=== PATIENT | male | born 1990 | race Caucasian/White ===

== ENCOUNTER 2019-12-13 23:31 | Emergency (ER) | payer SELFPAY ==
--- NOTE | 2019-12-14 00:01 | ER Document Report ---
ED Medical Screen (RME) - General Chief Complaint: Nausea/Vomiting Stated Complaint: SOB,VOMITING,CHILLS Time Seen by Provider: 12/13/19 23:54 Mode of Arrival: Ambulatory Information source: Patient Notes: 29-year-old male presented to ED for complaint of nausea and vomiting x3 days. He states today the first time he had emesis that had blood in it a second time and had blood in the next time it was just very dark. He states he has had chills hot flashes sweating shortness of breath and pressure in his chest. He states he does not smoke but he does drink weekly. He states it varies whether is just a couple beers or a lot. He is very diaphoretic while I am examining him. He states his pain level is about a 1 or 2 at this time. We will do EKG blood work type and screen chest x-ray saline lock and have been examined by another provider. He will be put on the monitor. - Related Data Home Medications: synthroid. testestorone Past Medical History - Social History Chew tobacco use (# tins/day): No Frequency of alcohol use: Occasional Drug Abuse: None Physical Exam - Vital signs Vitals: Temp Pulse Resp BP Pulse Ox 98.4 F 111 H 28 H 155/92 H 98 12/13/19 23:45 12/13/19 23:45 12/13/19 23:45 12/13/19 23:45 12/13/19 23:45 Course - Vital Signs Vital signs: Temp Pulse Resp BP Pulse Ox 98.4 F 111 H 28 H 155/92 H 98 12/13/19 23:56 12/13/19 23:45 12/13/19 23:45 12/13/19 23:45 12/13/19 23:45
[2019-12-14] MEDS ORDERED: ONDANSETRON HCL INJ/PF 4 MG/2 ML SDV IV ONE (00:24)
[2019-12-14] MEDS ORDERED: NORMAL SALINE 1000 ML 1,000 ML IV ONE ×2 (00:25→04:29)
--- NOTE | 2019-12-14 00:46 | RADIOLOGY REPORT (SQ) ---
CLINICAL HISTORY: chest tightness COMPARISON: None. TECHNIQUE: XR CHEST 1 VIEW 12/13/2019 11:57 PM [facility] FINDINGS: Cardiac silhouette is normal in size. Lungs are clear without consolidation, atelectasis, mass or edema. There is no pleural effusion. There is no pneumothorax. There are no acute osseous findings. IMPRESSION: Clear lungs.
[2019-12-14 01:10] LABS: HEMOGLOBIN 19.2 g/dL (13.5-17.0); MEAN CORPUSCULAR HEMOGLOBIN 29.4 pg (27.0-33.4); MEAN CORPUSCULAR HGB CONC 34.1 g/dL (32.0-36.0); MEAN CORPUSCULAR VOLUME 86 fl (80-97); PLATELET COUNT 294 10^3/uL (150-450); RED BLOOD COUNT 6.53 10^6/uL (4.35-5.55); RED CELL DISTRIBUTION WIDTH 15.5 % (11.5-14.0); WHITE BLOOD COUNT 20.9 10^3/uL (4.0-10.5)
[2019-12-14 01:34] LABS: ALBUMIN 4.9 g/dL (3.5-5.0); ALKALINE PHOSPHATASE 86 U/L (38-126); ANION GAP 18 (5-19); ASPARTATE AMINO TRANSFERASE 36 U/L (17-59); BILIRUBIN,DIRECT 0.3 mg/dL (0.0-0.4); BILIRUBIN,TOTAL 0.6 mg/dL (0.2-1.3); BLOOD UREA NITROGEN 16 mg/dL (7-20); CARBON DIOXIDE 23 mmol/L (22-30); CHLORIDE 102 mmol/L (98-107); GLUCOSE 106 mg/dL (75-110); POTASSIUM 4.8 mmol/L (3.6-5.0); TOTAL PROTEIN 8.5 g/dL (6.3-8.2)
[2019-12-14 01:43] LABS: HEMATOCRIT 56.4 % (37.9-51.0)
[2019-12-14 01:47] LABS: ABSOLUTE LYMPHOCYTES# (MANUAL) 1.7 10^3/uL (0.5-4.7); ABSOLUTE MONOCYTES # (MANUAL) 0.8 10^3/uL (0.1-1.4); BASOPHILS % (MANUAL) 0 % (0-2); EOSINOPHILS % (MANUAL) 0 % (0-6); LYMPHOCYTES % (MANUAL) 8 % (13-45); MONOCYTES % (MANUAL) 4 % (3-13); SEGMENTED NEUTROPHILS % (MAN) 88 % (42-78); TOTAL CELLS COUNTED 100
[2019-12-14 01:49] LABS: PLATELET COMMENT ADEQUATE; RBC MORPHOLOGY COMMENT NORMO-CYTIC/CHROMIC
[2019-12-14 01:52] LABS: FREE T3 4.73 pg/mL (2.77-5.27); FREE T4 (FREE THYROXINE) 1.63 ng/dL (0.78-2.19)
[2019-12-14 02:05] LABS: THYROID STIMULATING HORMONE 0.84 uIU/mL (0.47-4.68)
--- NOTE | 2019-12-14 03:34 | ER Document Report ---
ED General - General Chief Complaint: Nausea/Vomiting Stated Complaint: SOB,VOMITING,CHILLS Time Seen by Provider: 12/13/19 23:54 Primary Care Provider: JOSEPH MCKINNEY DO [NO LOCAL MD] - Follow up in 3-5 days Mode of Arrival: Ambulatory - [facility] Notes: Patient is a 29-year-old male with no significant past medical history who presents with nausea and vomiting. Patient states he was at the gym today when the symptoms started. He states that he vomited several times and had blood in the first 2 episodes. The third time he vomited, he states it was very dark. He has some slight abdominal discomfort. He has not had diarrhea. No fevers or chills. He denies any sick contacts. Mentions mild chest discomfort. He states that he has had a dry cough and attributed it to allergies which is normal for him. He denies taking any supplements or medications. - Related Data Allergies/Adverse Reactions: No Known Allergies Allergy (Verified 12/14/19 02:19) Home Medications: synthroid. testestorone Past Medical History - General Information source: Patient - Social History Smoking Status: Never Smoker Chew tobacco use (# tins/day): No Frequency of alcohol use: Occasional Drug Abuse: None Family History: None Patient has homicidal ideation: No Review of Systems - Review of Systems Notes: CONSTITUTIONAL: No fever, fatigue or weight loss. SKIN: No rash. HENT: No congestion, ear pain, or sore throat. EYES: No recent vision problems or eye pain. ENDOCRINE: No thyroid problems. No polyuria or polydipsia. CARDIOVASCULAR: Positive for mild chest tightness. RESPIRATORY: Positive for dry cough. GASTROINTESTINAL: Positive for abdominal pain, nausea, vomiting GENITOURINARY: No dysuria. MUSCULOSKELETAL: No joint pain or swelling. NEUROLOGIC: No seizures. No headache, focal weakness or sensory changes. HEMATOLOGIC: No unusual bruising or bleeding. PSYCHIATRIC: No depression or anxiety. Physical Exam - Vital signs Vitals: Temp Pulse Resp BP Pulse Ox 98.4 F 111 H 28 H 155/92 H 98 12/13/19 23:45 12/13/19 23:45 12/13/19 23:45 12/13/19 23:45 12/13/19 23:45 - General General appearance: Appears well Notes: VITAL SIGNS: Mild tachycardia GENERAL: No acute distress, non-toxic appearance. HEAD: Normal with no signs of head trauma. EYES: EOMI, conjunctiva normal, no discharge. EARS: Hearing grossly intact. NOSE: Normal. THROAT: Oropharynx is normal. NECK: Normal range of motion, no tenderness, supple, no lymphadenopathy, No adenopathy, no JVD. CHEST: Clear breath sounds bilaterally. No wheezes, rales, or rhonchi. CARDIAC: Regular rate and rhythm. S1 and S2, without murmurs, gallops, or rubs. VASCULAR: No Edema. ABDOMEN: Normal and soft GENITOURINARY: Normal, No tenderness LYMPATHTIC: No lymphadenopathy noted. MUSCULOSKELETAL: Good range of motion of all major joints. Extremities without clubbing, cyanosis or edema. NEUROLOGICAL: Alert and oriented x 3. No focal sensory or strength deficits. Speech normal. Follows commands appropriately. PSYCHIATRIC: Normal Affect, judgement and mood. SKIN: Normal appearance with no rashes or lesions. Course - Re-evaluation Re-evalutation: 12/14/19 06:31 Patient states he feels much better. He still has some slight tachycardia. D- dimer was negative so I have low suspicion for PE. He will be given fluids as his urinalysis looks like he is dehydrated. Patient states he is no longer having any chest pain. He has been sleeping while in the ER. His CT of his abdomen and his chest x-ray were normal. He does have a slight white count but I do not have a source. Patient was tested for Covid and this is pending. His influenza was negative. He states he feels well to go home. Patient was given strict return precautions. He was told to self isolate until he is called with a negative result. 12/15/19 01:55 - Vital Signs Vital signs: Temp Pulse Resp BP Pulse Ox 98.0 F 111 H 22 H 171/73 H 97 12/14/19 07:04 12/13/19 23:45 12/14/19 05:01 12/14/19 07:04 12/14/19 06:50 - Laboratory Result Diagrams: 12/14/19 00:27 12/14/19 00:27 Laboratory results interpreted by me: 12/14/19 12/14/19 12/14/19 00:27 00:27 05:05 WBC 20.9 H RBC 6.53 H Hgb 19.2 H Hct 56.4 H RDW 15.5 H Seg Neuts % (Manual) 88 H Lymphocytes % (Manual) 8 L Abs Neuts (Manual) 18.4 H Creatinine 1.49 H Est GFR (MDRD) Non-Af 57 L Magnesium 2.8 H Total Protein 8.5 H Urine Protein 100 H Urine Ketones 80 H Urine Ascorbic Acid 40 H - Diagnostic Test Radiology reviewed: Image reviewed, Reports reviewed - EKG Interpretation by Me EKG shows normal: Sinus rhythm Rate: Normal Rhythm: NSR Additional EKG results interpreted by me: 12/14/19 03:21 Sinus rhythm at a rate of 92. QTc 421. No acute ST changes. No previous EKG a vailable for comparison. Discharge - Discharge Clinical Impression: Vomiting Qualifiers: Vomiting type: unspecified Vomiting Intractability: non-intractable Nausea presence: with nausea Qualified Code(s): R11.2 - Nausea with vomiting, unspecified Leukocytosis Qualifiers: Leukocytosis type: unspecified Qualified Code(s): D72.829 - Elevated white blood cell count, unspecified Condition: Stable Disposition: HOME, SELF-CARE Instructions: COVID-19 Guidance for Persons Under Investigation, Vomiting ([facility]) Additional Instructions: Make sure you are staying hydrated. You can take the nausea medicine as prescribed. You must self isolate until you are called with a negative Covid result. Return to the ER for any shortness of breath, vomiting, any worsening symptoms. Prescriptions: Ondansetron [Zofran Odt 4 mg Tablet] 4 mg PO Q6H 7 Days #10 tab.rapdis Referrals: JOSEPH MCKINNEY DO [NO LOCAL MD] - Follow up in 3-5 days
[2019-12-14 04:07] LABS: A TYPE INFLUENZA AG NEGATIVE (NEGATIVE); B INFLUENZA AG NEGATIVE (NEGATIVE)
--- NOTE | 2019-12-14 06:00 | RADIOLOGY REPORT (SQ) ---
EXAM DESCRIPTION: CT ABDOMEN PELVIS WITH IV CONTRAST COMPLETED DATE/TME: 12/14/2019 04:30 CLINICAL HISTORY: Diffuse abdominal pain. COMPARISON: None Available. TECHNIQUE: CT of the abdomen and pelvis performed following IV administration of 100 mL Omnipaque 350. FINDINGS: Lung Bases: The visualized lung bases are clear. Bones: Bilateral L5 pars defects with grade 1 spondylolisthesis of L5 over S1. Mild disc height narrowing at L5/S1. Abdomen: Liver: The liver has normal size and density. No intrahepatic biliary dilatation. Gallbladder: No calcified gallstones. Spleen, Pancreas, and Adrenal Glands: The spleen, pancreas, and adrenal glands are unremarkable. Kidneys: No hydronephrosis or obstructing calculus. Vasculature: The aorta and IVC have normal caliber and position. The portal vein is patent. The proximal visceral and renal arteries are patent. Stomach: The stomach and duodenum have normal course. Other: No free intraperitoneal air. No free fluid or lymphadenopathy. Pelvis: Bladder: Urinary bladder is unremarkable. Bowel: No dilated loops of large or small bowel. Appendix: Normal appendix. Pelvis: Prostate is not enlarged. IMPRESSION: 1. No acute inflammatory or obstructive process identified. This exam was performed according to our departmental dose-optimization program, which includes automated exposure control, adjustment of the mA and/or kV according to patient size and/or use of iterative reconstruction technique.
[2019-12-14 06:20] LABS: APPEARANCE,URINE CLEAR; BILIRUBIN,URINE NEGATIVE (NEGATIVE); COLOR,URINE YELLOW; GLUCOSE, URINE NEGATIVE (NEGATIVE); KETONES,URINE 80 mg/dL (NEGATIVE); LEUKOCYTE ESTERASE,URINE NEGATIVE (NEGATIVE); NITRITE,URINE NEGATIVE (NEGATIVE); PROTEIN,URINE 100 mg/dL (NEGATIVE); URINE SPECIFIC GRAVITY 1.047; UROBILINOGEN,URINE NEGATIVE mg/dL (<2.0)
--- NOTE | 2019-12-14 06:23 | EKG REPORT ---
SEVERITY:- ABNORMAL ECG - SINUS RHYTHM LEFT ANTERIOR FASCICULAR BLOCK : Confirmed by: Kimani Norman MD 14-Dec-2019 06:22:08
[2019-12-14] MEDS ORDERED: NORMAL SALINE 500 ML IV ONE (06:24)
[2019-12-14 07:18] VITALS: BP 171/73
== END 2019-12-14 07:18 | disposition home or self-care (01) ==
LOC: ER 23:31
DX: R11.2 Nausea with vomiting, unspecified (principal); D72.829 Elevated white blood cell count, unspecified; R06.02 Shortness of breath; R10.9 Unspecified abdominal pain; Z20.828 Contact with and (suspected) exposure to other viral communicable diseases
CPT/HCPCS: 93005; 99285; 96361; 96374; 86900; 86901; 36415; 84439; 86850; 83735; 84443; 85025; 87635; 80053; 81001; 84484; 84481; 85379; 87804; 71045; 74177; 93010; J2405; J7030; J7040; C9803

== ENCOUNTER 2019-12-14 14:36 | Emergency (ER) | payer SELFPAY ==
[2019-12-14] MEDS ORDERED: NORMAL SALINE 1000 ML 1,000 ML IV ONE ×3 (15:04→19:19)
--- NOTE | 2019-12-14 15:16 | ER Document Report ---
ED Psych Disorder / Suicide - General Mode of Arrival: Ambulatory Information source: Patient - HPI Patient complains to provider of: Suicidal attempt Onset: Yesterday Suicide Risk Factors: Male, No spouse Suicide Attempt Method: Overdose Overdose of: Acetominophen, Anticholinergic, Salicylate Associated symptoms: Depressed Similar symptoms previously: No Recently seen / treated by doctor: Yes <JACI CAMPOS - Last Filed: 12/14/19 19:44> <VICKIE CORONEL - Last Filed: 12/15/19 08:05> - General Chief Complaint: Psych Problem Stated Complaint: PSYCH, SUICIDAL IDEATIONS Time Seen by Provider: 12/14/19 14:49 Notes: Patient presents stating that he has had suicidal thoughts and overdose last night around 10 PM. Patient reports taking a box of Benadryl tablets that he thinks maybe was 100 tablets. Patient reports taking 5 Tylenol codeine tablets. Patient states he took half a bottle of aspirin and drink a full bottle of NyQuil. Patient reports that he has been depressed because "everything is shit" right now. Patient complains of a ringing in his ears and decreased hearing. Patient complains of generalized numbness all over his body. Patient denies any chest pain, abdominal pain, nausea or vomiting. Patient denies any underlying medical history of any mental illness. Patient states he was seen here last night because he freaked out after he took all the medications but he just answered questions for the Covid screening and he was therefore evaluated for possible Covid symptoms although patient now denies any concern about Covid and states that he was really only telling staff that so that he did not have to ac knowledge that he had overdosed. (JACI CAMPOS) - Related Data Allergies/Adverse Reactions: No Known Allergies Allergy (Verified 12/14/19 02:19) Past Medical History - General Information source: Patient - Social History Smoking Status: Never Smoker Frequency of alcohol use: None Drug Abuse: None Occupation: Construction Lives with: Spouse/Significant other Family History: Reviewed & Not Pertinent Endocrine Medical History: Reports: Hx Hypothyroidism Past Surgical History: Reports: Hx Tonsillectomy <JACI CAMPOS - Last Filed: 12/14/19 19:44> Review of Systems - Review of Systems Constitutional: No symptoms reported. denies: Fever EENT: Other - Tinnitus Cardiovascular: No symptoms reported. denies: Chest pain, Dizziness, Lightheaded Respiratory: No symptoms reported. denies: Cough, Short of breath Gastrointestinal: No symptoms reported. denies: Nausea, Vomiting Genitourinary: No symptoms reported Male Genitourinary: No symptoms reported Musculoskeletal: No symptoms reported. denies: Back pain Skin: No symptoms reported Hematologic/Lymphatic: No symptoms reported Neurological/Psychological: Numbness - Generalized numbness to extremities, Suicidal ideation <JACI CAMPOS - Last Filed: 12/14/19 19:44> Physical Exam - Neurological Neuro grossly intact: Yes Cognition: Normal Orientation: AAOx4 [place] Coma Scale Eye Opening: Spontaneous [place] Coma Scale Verbal: Oriented [place] Coma Scale Motor: Obeys Commands [place] Coma Scale Total: 15 Speech: Normal. No: Dysarthria Cranial nerves: Normal Motor strength normal: LUE, RUE, LLE, RLE <JACI CAMPOS - Last Filed: 12/14/19 19:44> - Vital signs Vitals: Temp Pulse Resp BP Pulse Ox 98.0 F 113 H 18 168/79 H 96 12/14/19 14:44 12/14/19 14:44 12/14/19 14:44 12/14/19 14:44 12/14/19 14:44 - Notes Notes: PHYSICAL EXAMINATION: GENERAL: Well-appearing and in no acute distress. HEAD: Atraumatic, normocephalic. EYES: sclera anicteric, conjunctiva are normal. ENT: nares patent. Moist mucous membranes. NECK: Normal range of motion, supple without lymphadenopathy LUNGS: CTAB and equal. No wheezes rales or rhonchi. HEART: Tachycardia, rhythm without murmurs ABDOMEN: Soft, nontender, normal bowel sounds, no guarding. EXTREMITIES: Normal range of motion, no pitting edema. No cyanosis. BACK:No CVA tenderness NEUROLOGICAL: Cranial nerves grossly intact. Normal speech. PSYCH: Depressed mood SKIN: Warm, Dry, normal turgor, no rashes or lesions noted (ANDRESJACI) Course - Laboratory Result Diagrams: 12/14/19 15:03 12/14/19 17:32 - EKG Interpretation by Wy EKG shows normal: Sinus rhythm Rate: Tachycardia <JACI CAMPOS - Last Filed: 12/14/19 19:44> - Laboratory Result Diagrams: 12/14/19 15:03 12/14/19 23:00 <VICKIE CORONEL - Last Filed: 12/15/19 08:05> - Re-evaluation Re-evalutation: 12/14/19 16:19 Spoke with poison control regarding patient presentation and diagnostic evaluation, reviewed patient's lab results at this time. They advised obtaining a repeat salicylate level in 2 hours along with a repeat chemistry and magnesium level. They recommend hydrating with normal saline in the meantime. Patient salicylate level is presently less than 40 therefore patient does not require a bicarb drip at this time. They do advised keeping patient until salicylate [place] is trending down and his symptoms have resolved including the tinnitus and tachycardia. 12/14/19 19:18 Patient with improved renal function as well as salicylate level on repeat draw. Patient tachycardia persists although is improved at 107. We will continue to administer maintenance IV fluids and will plan a repeat blood draw in 4 hours, consulted with Dr. Banda who agrees with this plan of care. (JACI CAMPOS) 12/15/19 00:45 Salicylate level drawn at 23:00 continues to trend down at 24.6. Patient is still tachycardic but slowly improving with a HR of 102. I spoke with Dr. Banda and will repeat salicylate level in four hours and continue to monitor his HR. 12/15/19 06:29 Repeat Salicylate level of 19.2 which is trending appropriately. Patient HR ranges from 88-104 which is a slight improvement. 12/15/19 07:12 Patient reassessed and he reports he is feeling better and notes an improvement in tinnitus. HR improved and now ranges from 86-96. Patient is medically cleared and will see psych in the morning. (VICKIE CORONEL) - Vital Signs Vital signs: Temp Pulse Resp BP Pulse Ox 98.4 F 97 16 185/76 H 99 12/15/19 06:59 12/15/19 06:59 12/15/19 06:59 12/15/19 06:59 12/15/19 06:59 - Laboratory Laboratory results interpreted by me: 12/14/19 12/14/19 12/14/19 15:03 15:03 15:03 WBC 19.1 H RBC 5.93 H Hgb 17.3 H Hct 51.4 H RDW 15.9 H Absolute Neuts (auto) 15.0 H Seg Neutrophils % 78.5 H PT 18.2 H Chloride 109 H Carbon Dioxide 20 L Creatinine 1.36 H Glucose 114 H Calcium Magnesium Urine Protein Urine Ketones Urine Ascorbic Acid Salicylates 36.2 H* Acetaminophen < 10 L 12/14/19 12/14/19 12/14/19 15:03 17:32 23:00 WBC RBC Hgb Hct RDW Absolute Neuts (auto) Seg Neutrophils % PT Chloride 110 H 112 H Carbon Dioxide 20 L Creatinine Glucose Calcium 8.0 L 7.8 L Magnesium 2.4 H Urine Protein 100 H Urine Ketones 80 H Urine Ascorbic Acid 40 H Salicylates 31.2 H* 24.6 H* Acetaminophen - EKG Interpretation by Me Additional EKG results interpreted by me: 12/14/19 19:49 Sinus tachycardia with a rate of 102, QTc 417, no acute ischemic changes (JACI CAMPOS) Discharge <JACI CAMPOS - Last Filed: 12/14/19 19:44> <VICKIE CORONEL - Last Filed: 12/15/19 08:05> - Discharge Clinical Impression: Salicylate overdose, Amphetamine abuse Condition: Stable Disposition: PSYCH HOSP/UNIT
[2019-12-14 15:29] LABS: ABSOLUTE BASOPHILS # (AUTO) 0.1 10^3/uL (0.0-0.2); ABSOLUTE EOSINOPHILS # (AUTO) 0.1 10^3/uL (0.0-0.6); ABSOLUTE LYMPHOCYTES (AUTO) 2.8 10^3/uL (0.5-4.7); ABSOLUTE MONOCYTES (AUTO) 1.1 10^3/uL (0.1-1.4); BASOPHILS % (AUTO) 0.5 % (0-2); EOSINOPHILS % (AUTO) 0.4 % (0-6); HEMATOCRIT 51.4 % (37.9-51.0); HEMOGLOBIN 17.3 g/dL (13.5-17.0); LYMPHOCYTES % (AUTO) 14.6 % (13-45); MEAN CORPUSCULAR HEMOGLOBIN 29.2 pg (27.0-33.4); MEAN CORPUSCULAR HGB CONC 33.6 g/dL (32.0-36.0); MEAN CORPUSCULAR VOLUME 87 fl (80-97); PLATELET COUNT 261 10^3/uL (150-450); RED BLOOD COUNT 5.93 10^6/uL (4.35-5.55); RED CELL DISTRIBUTION WIDTH 15.9 % (11.5-14.0); SEGMENTED NEUTROPHILS % (AUTO) 78.5 % (42-78); TOTAL CELLS COUNTED % (AUTO) 100 %; WHITE BLOOD COUNT 19.1 10^3/uL (4.0-10.5)
[2019-12-14 15:43] LABS: INTERNATIONAL RATION (INR) 1.49; PROTHROMBIN TIME 18.2 SEC (11.4-15.4)
[2019-12-14 15:47] LABS: ALBUMIN 4.2 g/dL (3.5-5.0); ALKALINE PHOSPHATASE 68 U/L (38-126); ANION GAP 12 (5-19); ASPARTATE AMINO TRANSFERASE 21 U/L (17-59); BILIRUBIN,DIRECT 0.1 mg/dL (0.0-0.4); BILIRUBIN,TOTAL 0.4 mg/dL (0.2-1.3); BLOOD UREA NITROGEN 18 mg/dL (7-20); CALCIUM 8.6 mg/dL (8.4-10.2); CARBON DIOXIDE 20 mmol/L (22-30); CHLORIDE 109 mmol/L (98-107); GLUCOSE 114 mg/dL (75-110); POTASSIUM 4.3 mmol/L (3.6-5.0); TOTAL PROTEIN 7.1 g/dL (6.3-8.2)
[2019-12-14 15:49] LABS: APPEARANCE,URINE CLEAR; BILIRUBIN,URINE NEGATIVE (NEGATIVE); COLOR,URINE YELLOW; GLUCOSE, URINE NEGATIVE (NEGATIVE); KETONES,URINE 80 mg/dL (NEGATIVE); LEUKOCYTE ESTERASE,URINE NEGATIVE (NEGATIVE); NITRITE,URINE NEGATIVE (NEGATIVE); PROTEIN,URINE 100 mg/dL (NEGATIVE); URINE SPECIFIC GRAVITY 1.047; UROBILINOGEN,URINE NEGATIVE mg/dL (<2.0)
[2019-12-14 15:53] LABS: ACETAMINOPHEN < 10 ug/mL (10-30); ALCOHOL < 10 mg/dL (NONE DETECTED)
[2019-12-14 15:57] LABS: SALICYLATE 36.2 mg/dL (2.0-20.0)
[2019-12-14 15:58] LABS: URINE BARBITURATES SCREEN NEGATIVE; URINE BENZODIAZEPINES SCREEN NEGATIVE; URINE COCAINE SCREEN NEGATIVE; URINE MARIJUANA (THC) SCREEN NEGATIVE; URINE METHADONE SCREEN NEGATIVE; URINE PHENCYCLIDINE SCREEN NEGATIVE
[2019-12-14 16:03] LABS: URINE AMPHETAMINES SCREEN UNCONFIRMED POSITIVE
[2019-12-14 18:34] LABS: ANION GAP 12 (5-19); BLOOD UREA NITROGEN 17 mg/dL (7-20); CARBON DIOXIDE 20 mmol/L (22-30); CHLORIDE 110 mmol/L (98-107); GLUCOSE 94 mg/dL (75-110); POTASSIUM 4.4 mmol/L (3.6-5.0)
[2019-12-14 18:43] LABS: SALICYLATE 31.2 mg/dL (2.0-20.0)
--- NOTE | 2019-12-14 19:48 | EKG REPORT ---
SEVERITY:- BORDERLINE ECG - SINUS TACHYCARDIA LEFT AXIS DEVIATION BORDERLINE T ABNORMALITIES, INFERIOR LEADS : Confirmed by: Brandon Baron MD 14-Dec-2019 19:48:27
[2019-12-14 23:48] LABS: ANION GAP 6 (5-19); BLOOD UREA NITROGEN 17 mg/dL (7-20); CALCIUM 7.8 mg/dL (8.4-10.2); CARBON DIOXIDE 22 mmol/L (22-30); CHLORIDE 112 mmol/L (98-107); GLUCOSE 94 mg/dL (75-110); POTASSIUM 3.8 mmol/L (3.6-5.0)
[2019-12-14 23:55] LABS: SALICYLATE 24.6 mg/dL (2.0-20.0)
[2019-12-15] MEDS ORDERED: ONDANSETRON HCL INJ/PF 4 MG/2 ML SDV IV ONE (16:39)
--- NOTE | 2019-12-15 16:39 | ER Document Report ---
Doctor's Note Notes: 12/15/19 16:34 Patient's vital signs and previous labs, diagnostic images reviewed. Reviewed mental health notes, nurse's notes and previous providers notes. VSS. Pt is in no distress at this time. Denies any SI or HI. Has a white count 19,000 from yesterday. We will repeat blood work today. does report nausea. denies fevers, chills, chest pain,palpitations, shortness of breath, dyspnea, , vomiting, diarrhea, abdominal pain, hematuria,blurred vision, double vision, loss of vision, speech changes, LH, dizziness, syncope, headaches, wheezing, ST, URI, neck pain, weakness, bowel or bladder dysfunction, saddle anesthesia, numbness or tingling in bilateral upper or lower extremities equally, muscle paralysis, w eakness in bilateral upper or lower extremities equally or rash. Denies IV drug use. General: A&Ox3. Answers questions appropriately. Heart: RRR Lungs: CTAB abD: no abd tenderness, no distention. no cva tenderness appreciated bilaterally Psych: Flat affect A/P: Continue monitoring and rec's per . Normal diet will likely have placement tomorrow
[2019-12-15] MEDS ORDERED: ONDANSETRON 4 MG TAB.RAPDIS PO PRN (18:11)
[2019-12-15 22:39] LABS: AMORPHOUS SEDIMENT,URINE TRACE /HPF; APPEARANCE,URINE CLOUDY; BILIRUBIN,URINE NEGATIVE (NEGATIVE); COLOR,URINE YELLOW; GLUCOSE, URINE NEGATIVE (NEGATIVE); KETONES,URINE NEGATIVE (NEGATIVE); LEUKOCYTE ESTERASE,URINE NEGATIVE (NEGATIVE); NITRITE,URINE NEGATIVE (NEGATIVE); PROTEIN,URINE 30 mg/dL (NEGATIVE); URINE SPECIFIC GRAVITY 1.024
[2019-12-15 22:47] LABS: ABSOLUTE BASOPHILS # (AUTO) 0.1 10^3/uL (0.0-0.2); ABSOLUTE EOSINOPHILS # (AUTO) 0.1 10^3/uL (0.0-0.6); ABSOLUTE LYMPHOCYTES (AUTO) 2.1 10^3/uL (0.5-4.7); ABSOLUTE MONOCYTES (AUTO) 0.7 10^3/uL (0.1-1.4); ABSOLUTE NEUT (AUTO) 5.5 10^3/uL (1.7-8.2); BASOPHILS % (AUTO) 0.6 % (0-2); EOSINOPHILS % (AUTO) 1.5 % (0-6); HEMATOCRIT 46.9 % (37.9-51.0); HEMOGLOBIN 15.9 g/dL (13.5-17.0); LYMPHOCYTES % (AUTO) 25.2 % (13-45); MEAN CORPUSCULAR HEMOGLOBIN 29.4 pg (27.0-33.4); MEAN CORPUSCULAR HGB CONC 33.8 g/dL (32.0-36.0); MEAN CORPUSCULAR VOLUME 87 fl (80-97); MONOCYTES % (AUTO) 7.8 % (3-13); PLATELET COUNT 217 10^3/uL (150-450); RED BLOOD COUNT 5.41 10^6/uL (4.35-5.55); RED CELL DISTRIBUTION WIDTH 15.9 % (11.5-14.0); SEGMENTED NEUTROPHILS % (AUTO) 64.9 % (42-78); TOTAL CELLS COUNTED % (AUTO) 100 %; WHITE BLOOD COUNT 8.4 10^3/uL (4.0-10.5)
[2019-12-15 22:59] LABS: ALBUMIN 3.8 g/dL (3.5-5.0); ALKALINE PHOSPHATASE 60 U/L (38-126); ANION GAP 8 (5-19); ASPARTATE AMINO TRANSFERASE 19 U/L (17-59); BILIRUBIN,DIRECT 0.1 mg/dL (0.0-0.4); BILIRUBIN,TOTAL 0.4 mg/dL (0.2-1.3); BLOOD UREA NITROGEN 11 mg/dL (7-20); CALCIUM 8.7 mg/dL (8.4-10.2); CARBON DIOXIDE 25 mmol/L (22-30); CHLORIDE 105 mmol/L (98-107); GLUCOSE 84 mg/dL (75-110); POTASSIUM 3.9 mmol/L (3.6-5.0); SALICYLATE 3.1 mg/dL (2.0-20.0); TOTAL PROTEIN 6.4 g/dL (6.3-8.2)
--- NOTE | 2019-12-16 00:36 | ER Document Report ---
Doctor's Note Notes: 12/16/19 00:34 Patient is complaining of intermittent chest pain to his left, lower chest that began earlier today. Heart rate and rhythm are regular with no murmur noted. Vital signs are stable. EKG done which is read as: Sinus rhythm with a rate of 80. QTc 388. Left axis deviation. T wave inversions in diffuse leads including inferior and lateral leads. No ST segment changes in consecutive leads. I consulted my supervising physician, Dr. Banda, who recommends ordering a troponin for further evaluation. 12/16/19 01:30 Patient is now complaining of headache, 650mg of tylenol ordered. 12/16/19 01:45 Troponin is negative. No need for further cardiac workup as low suspicion for ACS based on presentation, risk factors, EKG and troponin. 12/16/19 08:01 Patient reassessed. He reports chest pain continues to come and go. Patient re-examined and he is tender to palpation to the area just left of the sternum. Suspicion for ACS even less as he has chest wall pain. NSAIDs as needed for pain.
[2019-12-16] MEDS ORDERED: ACETAMINOPHEN 325 MG TABLET PO ONE ×2 (01:26→08:21)
[2019-12-16 08:01] VITALS: BP 123/68
--- NOTE | 2019-12-16 11:05 | ER Document Report ---
Doctor's Note Notes: 12/16/19 11:05 Patient reevaluated at this time. Transport is at the bedside to take patient to the [facility]. Patient is on IVC papers. Patient denies any acute needs at this time. He is stable for transport.
--- NOTE | 2019-12-16 18:57 | EKG REPORT ---
SEVERITY:- ABNORMAL ECG - SINUS RHYTHM LEFT ANTERIOR FASCICULAR BLOCK NONSPECIFIC T ABNORMALITIES, DIFFUSE LEADS : Confirmed by: Brandon Baron MD 16-Dec-2019 18:57:10
== END 2019-12-16 11:18 ==
LOC: ER 14:36
DX: Z04.6 Encounter for general psychiatric examination, requested by authority (principal); T39.012A Poisoning by aspirin, intentional self-harm, initial encounter; T45.0X2A Poisoning by antiallergic and antiemetic drugs, intentional self-harm, initial encounter; T44.3X1A Poisoning by other parasympatholytics [anticholinergics and antimuscarinics] and spasmolytics, accidental (unintentional), initial encounter; T50.902A Poisoning by unspecified drugs, medicaments and biological substances, intentional self-harm, initial encounter; H93.13 Tinnitus, bilateral; H91.90 Unspecified hearing loss, unspecified ear; R20.0 Anesthesia of skin; R00.0 Tachycardia, unspecified; R51.9 Headache, unspecified; R07.89 Other chest pain; R11.0 Nausea; F15.10 Other stimulant abuse, uncomplicated
CPT/HCPCS: 93005 ×2; 99285; 96360; 96361 ×2; 36415; 80307 ×4; 83735; 85025; 85610; 87070; 80053; 81001; 84484; 93010 ×2; J7030